=== PATIENT | female | born 1935 | race Caucasian/White ===

== ENCOUNTER 2016-03-31 14:38 | Inpatient (IN) | payer OTHER ==
[~2016-03-31] VITALS: Ht 152.4 cm; Wt 60.5 kg
[2016-04-05] MEDS ORDERED: FOSAMAX70 MG PO (10:00)
[2016-04-05] MEDS ORDERED: LASIX20 MG PO (10:01)
[2016-04-05] MEDS ORDERED: NEURONTIN400 MG PO (10:01)
[2016-04-05] MEDS ORDERED: PRINIVIL20 MG PO (10:01)
[2016-04-05] MEDS ORDERED: CALCIUM 250+D1 EACH PO (10:02)
[2016-04-05] MEDS ORDERED: NALFON400 MG PO (10:02)
[2016-04-05] MEDS ORDERED: FOLIC ACID0.8 M1 PO (10:03)
[2016-04-05] MEDS ORDERED: NATURAL LUTEIN20 MG PO (10:03)
[2016-04-05] MEDS ORDERED: MULTI-DAY VITA1 EACH PO (10:03)
[2016-04-05] MEDS ORDERED: VITAMIN B-12250 MCG PO (10:03)
[2016-04-05] MEDS ORDERED: OMEPRAZOLE40 M1 PO (10:04)
[2016-04-08] MEDS ORDERED: COLACE100 MG PO (06:04)
[2016-04-08 06:07] VITALS: BP 176/85
[2016-04-08 06:09] LABS: HEMATOCRIT 35.7 % (36.0-46.0); MCHC 31.7 G/DL (30.0-36.0); MCV 91.5 FL (83-99); MEAN PLAT.VOLUME 8.4 uM^3 (9.5-12.4); PLATELET COUNT 402 K/uL (156-360); RBC DIS.WIDTH-CV 14.8 % (11.8-14.6); RBC DIS.WIDTH-SD 47.5 % (39-53); WHITE BLOOD COUNT 8.1 K/uL (4.1-10.2)
[2016-04-08 06:19] LABS: CHLORIDE 109 mEq/L (99-109); POTASSIUM 3.9 mEq/L (3.7-5.4); SODIUM 138 mEq/L (136-147)
[2016-04-08 06:20] LABS: GLUCOSE 99 mg/dL (70-99)
[2016-04-08 06:22] LABS: ANION GAP 10 MEQ/L (2-14)
[2016-04-08 06:24] LABS: GFR ESTIMATE (CALCULATED) 57 mL/min/
[2016-04-08 06:25] LABS: UREA NITROGEN (BUN) 33 mg/dL (9-23)
[2016-04-08 14:40] VITALS: BP 115/56
[2016-04-08 14:57] VITALS: BP 115/56
[2016-04-08 20:08] VITALS: BP 119/57
[2016-04-08 23:36] VITALS: BP 137/63
[2016-04-09 03:51] VITALS: BP 142/66
[2016-04-09 07:25] VITALS: BP 108/62
[2016-04-09 16:43] VITALS: BP 137/66
[2016-04-09 23:27] VITALS: BP 121/58
[2016-04-10 08:30] VITALS: BP 124/58
[2016-04-10 17:47] VITALS: BP 130/65
[2016-04-10 20:09] VITALS: BP 135/71
[2016-04-10 23:53] VITALS: BP 126/66
[2016-04-11 03:59] VITALS: BP 124/65
[2016-04-11 07:17] VITALS: BP 111/55
[2016-04-11 16:00] VITALS: BP 100/51
[2016-04-11] MEDS ORDERED: TIZANIDINE HCL2 MG PO (17:24)
[2016-04-11] MEDS ORDERED: TRAMADOL HCL50 MG PO (17:24)
== END 2016-04-11 18:15 | DRG 460 ==
LOC: 2SOUTH 14:38 → 3EAST 04-08 05:25 → 2SOUTH 04-08 11:28 → 3EAST 04-08 14:10 → 2SOUTH 04-08 14:43 → 3EAST 04-11 18:15
PROVIDERS: Neurological Surgery
DX: M47.816 Spondylosis without myelopathy or radiculopathy, lumbar region (principal); M48.06 Spinal stenosis, lumbar region; M54.16 Radiculopathy, lumbar region; M41.9 Scoliosis, unspecified; M53.3 Sacrococcygeal disorders, not elsewhere classified; M06.9 Rheumatoid arthritis, unspecified; I10 Essential (primary) hypertension; M81.0 Age-related osteoporosis without current pathological fracture; Z96.642 Presence of left artificial hip joint
CPT/HCPCS: 72100; 76000; 80048; 85027; 86850; 86900; 86901; 95886; 95938; J0330; J0690; J1100; J1170; J2405; J3010; J3370; J3480; S0020

== ENCOUNTER 2016-04-11 14:12 | Inpatient (IN) | payer OTHER ==
[~2016-04-11] VITALS: Ht 152.4 cm; Wt 62.0 kg
[~2016-04-11 14:12] MED LIST: CALCIUM 250+D1 EACH PO; COLACE100 MG PO; FOLIC ACID0.8 M1 PO; FOSAMAX70 MG PO; LASIX20 MG PO; MULTI-DAY VITA1 EACH PO; NALFON400 MG PO; NATURAL LUTEIN20 MG PO; NEURONTIN400 MG PO; OMEPRAZOLE40 M1 PO; PRINIVIL20 MG PO; VITAMIN B-12250 MCG PO
[2016-04-11] MEDS ORDERED: TRAMADOL HCL50 MG PO (17:24)
[2016-04-11] MEDS ORDERED: TIZANIDINE HCL2 MG PO (17:24)
[2016-04-11 18:27] VITALS: BP 147/70
[2016-04-12] VITALS: BP 143/68
[2016-04-12 05:29] VITALS: BP 147/70
[2016-04-12 07:35] LABS: HEMATOCRIT 21.9 % (36.0-46.0); MCH 29.3 PG (29.0-34.0); MCHC 32.4 G/DL (30.0-36.0); MCV 90.5 FL (83-99); RBC DIS.WIDTH-CV 14.8 % (11.8-14.6); RBC DIS.WIDTH-SD 49.2 % (39-53); RED BLOOD COUNT 2.42 M/uL (3.80-5.20); WHITE BLOOD COUNT 8.1 K/uL (4.1-10.2)
[2016-04-12 07:39] LABS: ALKALINE PHOSPHATASE 156 IU/L (3-129); ANION GAP 8 MEQ/L (2-14); CHLORIDE 107 MEQ/L (99-109); GFR ESTIMATE (CALCULATED) > 59 mL/min/; GLUCOSE 106 mg/dL (70-99); SAMPLE HEMOLYSIS CHECK 0; SAMPLE ICTERIC CHECK 0; SAMPLE LIPEMIA CHECK 0; SODIUM 133 MEQ/L (136-147); TOTAL BILIRUBIN 0.3 MG/DL (0.0-1.0); UREA NITROGEN (BUN) 18 mg/dL (9-23)
[2016-04-12 08:43] LABS: MEAN PLAT.VOLUME 8.9 uM^3 (9.5-12.4)
[2016-04-12 08:49] LABS: PLATELET COUNT 254 K/uL (156-360)
[2016-04-12 15:25] VITALS: BP 109/53
[2016-04-13] VITALS (11 sets, daily range): BP systolic 140–153; BP diastolic 68–80
[2016-04-13 06:29] LABS: HEMATOCRIT 21.1 % (36.0-46.0); MCH 29.4 PG (29.0-34.0); MCHC 32.7 G/DL (30.0-36.0); MCV 90.3 FL (83-99); MEAN PLAT.VOLUME 8.8 uM^3 (9.5-12.4); PLATELET COUNT 280 K/uL (156-360); RBC DIS.WIDTH-CV 14.6 % (11.8-14.6); RBC DIS.WIDTH-SD 48.1 % (39-53); RED BLOOD COUNT 2.35 M/uL (3.80-5.20); WHITE BLOOD COUNT 7.9 K/uL (4.1-10.2)
[2016-04-14 04:40] VITALS: BP 150/77
[2016-04-14 04:49] LABS: HEMATOCRIT 30.2 % (36.0-46.0); MCH 29.4 PG (29.0-34.0); MCHC 33.1 G/DL (30.0-36.0); MCV 88.8 FL (83-99); MEAN PLAT.VOLUME 8.6 uM^3 (9.5-12.4); PLATELET COUNT 252 K/uL (156-360); RBC DIS.WIDTH-CV 14.2 % (11.8-14.6); RBC DIS.WIDTH-SD 46.5 % (39-53); WHITE BLOOD COUNT 8.3 K/uL (4.1-10.2)
[2016-04-14 05:08] LABS: ANION GAP 8 MEQ/L (2-14); CHLORIDE 103 MEQ/L (99-109); GFR ESTIMATE (CALCULATED) > 59 mL/min/; GLUCOSE 104 mg/dL (70-99); SAMPLE HEMOLYSIS CHECK 0; SAMPLE ICTERIC CHECK 0; SAMPLE LIPEMIA CHECK 0; SODIUM 133 MEQ/L (136-147); UREA NITROGEN (BUN) 18 mg/dL (9-23)
[2016-04-14 15:18] VITALS: BP 136/70
[2016-04-15 16:28] VITALS: BP 125/64
[2016-04-16 06:54] VITALS: BP 152/88
[2016-04-16 15:43] VITALS: BP 135/89
[2016-04-17 05:58] VITALS: BP 130/76
[2016-04-17 14:48] VITALS: BP 128/76
[2016-04-18 05:24] VITALS: BP 165/75
[2016-04-18 15:18] VITALS: BP 130/71
[2016-04-19 06:06] VITALS: BP 172/78
[2016-04-19 15:02] VITALS: BP 124/74
[2016-04-20 05:14] VITALS: BP 137/70
[2016-04-20 15:11] VITALS: BP 101/53
[2016-04-21 05:54] VITALS: BP 140/70
[2016-04-21 15:40] VITALS: BP 97/52
[2016-04-21 18:46] VITALS: BP 110/58
[2016-04-22 04:01] VITALS: BP 165/73
[2016-04-22 06:10] LABS: HEMATOCRIT 30.4 % (36.0-46.0); MCH 29.4 PG (29.0-34.0); MCHC 32.2 G/DL (30.0-36.0); MCV 91.3 FL (83-99); MEAN PLAT.VOLUME 8.9 uM^3 (9.5-12.4); PLATELET COUNT 300 K/uL (156-360); RBC DIS.WIDTH-CV 14.1 % (11.8-14.6); RBC DIS.WIDTH-SD 47.5 % (39-53); RED BLOOD COUNT 3.33 M/uL (3.80-5.20); WHITE BLOOD COUNT 5.7 K/uL (4.1-10.2)
[2016-04-22 06:26] LABS: ALKALINE PHOSPHATASE 176 IU/L (3-129); ANION GAP 6 MEQ/L (2-14); CHLORIDE 102 MEQ/L (99-109); GFR ESTIMATE (CALCULATED) > 59 mL/min/; GLUCOSE 111 mg/dL (70-99); POTASSIUM 4.4 MEQ/L (3.7-5.4); SAMPLE HEMOLYSIS CHECK 0; SAMPLE ICTERIC CHECK 0; SAMPLE LIPEMIA CHECK 0; SODIUM 132 MEQ/L (136-147); TOTAL BILIRUBIN 0.2 MG/DL (0.0-1.0); UREA NITROGEN (BUN) 20 mg/dL (9-23)
[2016-04-22 08:41] VITALS: BP 144/74
[2016-04-22 14:48] VITALS: BP 114/60
[2016-04-22] MEDS ORDERED: GABAPENTIN600 MG PO (19:25)
[2016-04-22] MEDS ORDERED: HYDROCODON-ACE1 EAC9 PO (19:25)
[2016-04-22] MEDS ORDERED: FERROUS SULFAT325 MG PO (19:25)
[2016-04-22] MEDS ORDERED: TIZANIDINE HCL2 MG PO (19:25)
[2016-04-22] MEDS ORDERED: COLACE100 MG PO (19:25)
[2016-04-22] MEDS ORDERED: SENNA PLUS TAB1 EACH PO (19:25)
[2016-04-22] MEDS ORDERED: LIDOCAINE700 MG TD (19:25)
[2016-04-22] MEDS ORDERED: FUROSEMIDE20 MG PO (19:25)
[2016-04-22 20:15] LABS: MAGNESIUM 2.1 mg/dl (1.3-2.7)
[2016-04-23 04:54] VITALS: BP 149/67
== END 2016-04-23 14:20 | DRG 949 ==
LOC: 3WEST 14:12
PROVIDERS: Physical Medicine & Rehabilitation Pain Medicine
PROC: F07M0ZZ Range of Motion and Joint Mobility Treatment of Musculoskeletal System - Whole Body (ICD-10-PCS; principal; 2016-04-11)
PROC: 30233N1 Transfusion of Nonautologous Red Blood Cells into Peripheral Vein, Percutaneous Approach (ICD-10-PCS; 2016-04-13)
DX: Z48.89 Encounter for other specified surgical aftercare (principal); R26.2 Difficulty in walking, not elsewhere classified; Z98.1 Arthrodesis status; D62 Acute posthemorrhagic anemia; E87.1 Hypo-osmolality and hyponatremia; M41.9 Scoliosis, unspecified; M51.36 Other intervertebral disc degeneration, lumbar region; M06.9 Rheumatoid arthritis, unspecified; M19.90 Unspecified osteoarthritis, unspecified site; M81.0 Age-related osteoporosis without current pathological fracture; I10 Essential (primary) hypertension; G89.29 Other chronic pain; N28.1 Cyst of kidney, acquired; H40.9 Unspecified glaucoma
CPT/HCPCS: 73502; 76856; 80048; 80053; 83735; 85027; 86850; 86900; 86901; 86920; 97110 GO; 97530 GP; J1940; P9016